=== PATIENT | male | born 1975 | race Caucasian/White ===

== ENCOUNTER 2016-09-29 19:36 | Emergency (ER) | payer SELFPAY ==
[2016-09-29 19:54] VITALS: BP 149/88
[2016-09-29] MEDS ORDERED: Aspirin Low Dose CHEW TAB* 81 MG ONE (20:22)
[2016-09-29] MEDS ORDERED: Aspirin TAB* 325 MG PO ONE (20:23)
--- NOTE | 2016-09-29 20:30 | RAD ---
INDICATION: Sternal pain COMPARISON: None TECHNIQUE: Oblique and lateral views were obtained. FINDINGS: There are no focal bony findings. Soft tissues are normal. IMPRESSION: NORMAL STERNUM.
--- NOTE | 2016-09-29 20:30 | RAD ---
INDICATION: Chest pain COMPARISON: None TECHNIQUE: PA and lateral dual-energy views were obtained. FINDINGS: Bones/Soft Tissues: There are no acute bony findings. Cardiomediastinal: The cardiomediastinal silhouette is normal. Lungs: There are no infiltrates. Pleura: There are no pleural effusions. Other: None IMPRESSION: NORMAL STUDY.
--- NOTE | 2016-11-12 09:06 | UC ---
Jose M Rey Matthew, scribed for Nicole Li MD on 09/29/16 at 2023 . Cardiac HPI - HPI Summary HPI Summary: A 41 y/o male presents to [facility] with sudden, constant, mid sternal chest pain since 07:00 this morning. The pain is rated 5/10 in severity. The patient was unloading a truck of 50lb sand bags and actively pulling a sand bag toward him, when he felt a sudden "pop" in his sternum. The initial pain took his breath away and he had SOB for a few minutes following the incident. The pain was described as sharp. The pain is also worse with movement of the neck. The patient states since onset the pain has come and gone, but remains noticeable. The patient has been taking prilosec for the past 7 years. He stopped smoking approximately 7 years ago. Hx of chronic URIs. - History of Current Complaint Chief Complaint: UCChestPain Stated Complaint: CHEST PAIN Time Seen by Provider: 09/29/16 19:46 Hx Obtained From: Patient Onset/Duration: Sudden Onset, Lasting Hours, Still Present Timing: Constant Initial Severity: Moderate Current Severity: Moderate Pain Intensity: 5 Chest Pain Location: Mid Sternal Character: Sharp/Stabbing Aggravating: Movement Associated Signs & Symptoms: Positive: Chest Pain - Allergy/Home Medications Allergies/Adverse Reactions: Allergies Allergy/AdvReac Type Severity Reaction Status Date / Time No Known Allergies Allergy Verified 09/29/16 21:53 Home Medications: Home Medications Acetaminophen [Tylenol] 650 mg PO 09/29/16 [History] Omeprazole CAP* [Prilosec CAP* 20 MG] 20 mg PO DAILY 09/29/16 [History Confirmed 09/29/16] PMH/Surg Hx/FS Hx/Imm Hx Previously Healthy: No - see below Endocrine History Of: Denies: Diabetes, Thyroid Disease Cardiovascular History Of: Denies: Cardiac Disorders, Hypertension Respiratory History Of: Reports: COPD - ? Denies: Asthma GI/ History Of: Denies: Ulcer - Surgical History Surgical History: Yes Surgery Procedure, Year, and Place: hyatial eclasia - Family History Known Family History: Negative: Cardiac Disease - Social History Alcohol Use: None Alcohol Amount: sober 7 years Substance Use Type: Marijuana Substance Use Comment - Amount & Last Used: weekly Smoking Status (MU): Former Smoker Review of Systems Constitutional: Negative Skin: Negative Eyes: Negative ENT: Negative Respiratory: Negative Cardiovascular: Chest Pain - mid sternal Gastrointestinal: Negative Genitourinary: Negative Motor: Negative Neurovascular: Negative Musculoskeletal: Negative Neurological: Negative Psychological: Negative All Other Systems Reviewed And Are Negative: Yes Physical Exam Triage Information Reviewed: Yes Appearance: Well-Nourished Vital Signs: Initial Vital Signs Temp 96.7 F 09/29/16 19:44 Pulse 89 09/29/16 19:44 Resp 18 09/29/16 19:44 BP 149/88 09/29/16 19:44 Pulse Ox 98 09/29/16 19:44 Vital Signs Reviewed: Yes Eye Exam: Normal ENT Exam: Normal Neck exam: Normal Neck: Positive: No Lymphadenopathy Respiratory: Positive: Chest non-tender, Lungs clear, Normal breath sounds, No respiratory distress, No accessory muscle use Cardiovascular: Positive: RRR, No Murmur, Pulses Normal, Brisk Capillary Refill Abdominal Exam: Normal Abdomen Description: Positive: Nontender, No Organomegaly, Soft Musculoskeletal Exam: Normal Neurological Exam: Normal - non-focal, grossly intact Psychological Exam: Normal - conversing easily and appropriately Skin Exam: Normal Skin: Negative: rashes Diagnostics - Radiology CXR Xray Interpretation: No Acute Changes - IMPRESSION: NORMAL STUDY. Radiology Interpretation Completed By: Radiologist Sterum XR Xray Interpretation: No Acute Changes - IMPRESSION: NORMAL STERNUM. Radiology Interpretation Completed By: Radiologist - EKG Cardiac Rate: NL - 68 bpm Cardiac Rhythm: Sinus: Normal - No Old For Comparasion; Probable left atrial enlargement; left ventricular hypertrophy; abnormal T, probable ischemia, anterior leads, II, III, aVF, V1-V5 - Assessment/Plan Course Of Treatment: Transfered to the ED for further evaluation and treatment. Questions answered to the best of my ability. No new problems while in [facility]. Mr. Martínez was offered and encouraged EMS transport, he politely but adamantly declines (AMA re EMS signed). - Clinical Impression Provider Diagnoses: chest pain - Physician Notifications Discussed Patient Care With: Dr. Coronel (ED physician) at 20:25 -- Notified of patient's history and will accept transfer of the patient. Discharge - Discharge Plan Condition: Guarded Disposition: TRANS HIGHER LVL OF CARE FAC Referrals: No Primary Care Phys,NOPCP [Primary Care Provider] - Additional Instructions: n/a The documentation as recorded by the Jose M wise Matthew accurately reflects the service I personally performed and the decisions made by me, Nicole Li MD.
== END 2016-09-29 20:32 | disposition short-term general hospital (02) ==
LOC: UCEAST 19:36
DX: R07.2 Precordial pain (principal); F12.90 Cannabis use, unspecified, uncomplicated; Z87.891 Personal history of nicotine dependence
CPT/HCPCS: 71020; 71120; 93005; 99202; A9270-GY; G0463

== ENCOUNTER 2016-09-29 21:22 | Emergency (ER) | payer SELFPAY ==
[2016-09-29] MEDS ORDERED: Aspirin Low Dose CHEW TAB* 81 MG PO ONE (22:56)
[2016-09-29 23:13] LABS: Hematocrit 39 % (42-52); Hemoglobin 13.2 g/dl (14.0-18.0); Mean Corpuscular HGB Conc 34 g/dl (31-36); Mean Corpuscular Hemoglobin 29 pg (27-31); Mean Corpuscular Volume 87 fL (80-94); Mean Platelet Volume 9 um3 (7.4-10.4); Red Blood Count 4.52 10^6/ul (4.0-5.4); Red Cell Distribution Width 14 % (10.5-15); White Blood Count 6.9 10^3/ul (3.5-10.8)
[2016-09-29 23:28] LABS: BUN/Creatinine Ratio 21.5 (8-20); Calcium 9.2 mg/dL (8.6-10.3); EGFR African American 139.7 (>60); EGFR Non-African American 108.6 (>60); Potassium 3.6 mmol/L (3.5-5.0)
--- NOTE | 2016-09-30 00:24 | ED ---
Jhonathan Rey Aidan, scribed for Stephane Corbett MD on 09/29/16 at 2245 . HPI Chest Pain - HPI Summary HPI Summary: 41 y/o male presents to the ED via transfer from the Urgent Care with a complaint of acute, constant, moderate (4/10), sharp chest pain and SOB. The pain is aggravated by breathing. During the onset of the pain, he felt a pop in his chest. Pt took tums because he initially thought he had indigestion, however , the tums did not alleviate his pain. Hx of URIs. - History of Current Complaint Chief Complaint: EDChestWallPain Time Seen by Provider: 09/29/16 22:38 Hx Obtained From: Patient Onset/Duration: Started Hours Ago, Still Present Timing: Constant Initial Severity: Moderate Current Severity: Moderate Pain Intensity: 4 Pain Scale Used: 0-10 Numeric Chest Pain Location: Diffuse Chest Pain Radiates: No Character: Sharp/Stabbing Aggravating Factor(s): Other: - unknown Alleviating Factor(s): Other: - unknown Associated Signs and Symptoms: Positive: Chest Pain, Shortness of Breath - Risk Factors Pulmonary Embolism Risk Factors: Smoking - former smoker TAD Risk Factors: Smoking - former smoker AMI/ACS Risk Factors: Smoking - former smoker - Allergy/Home Medications Allergies/Adverse Reactions: Allergies Allergy/AdvReac Type Severity Reaction Status Date / Time No Known Allergies Allergy Verified 09/29/16 21:53 PMH/Surg Hx/FS Hx/Imm Hx Endocrine/Hematology History: Denies: Hx Diabetes, Hx Thyroid Disease Cardiovascular History: Denies: Hx Hypertension Respiratory History: Reports: Hx Chronic Obstructive Pulmonary Disease (COPD) - ? Denies: Hx Asthma GI History: Denies: Hx Ulcer - Surgical History Surgery Procedure, Year, and Place: [facility] Infectious Disease History: No Infectious Disease History: Denies: Hx Hepatitis, Hx Human Immunodeficiency Virus (HIV), Traveled Outside the [place] in Last 30 Days - Family History Known Family History: Positive: Hypertension - Social History Occupation: Employed Full-time Lives: With Family Alcohol Use: None Alcohol Amount: sober 7 years Substance Use Type: Reports: Marijuana Substance Use Comment - Amount & Last Used: weekly Hx Tobacco Use: No Smoking Status (MU): Former Smoker Review of Systems Constitutional: Negative Eyes: Negative ENT: Negative Positive: Chest Pain. Negative: Palpitations Positive: Shortness Of Breath. Negative: Cough Gastrointestinal: Negative Genitourinary: Negative Musculoskeletal: Negative Skin: Negative Neurological: Negative Psychological: Normal All Other Systems Reviewed And Are Negative: Yes Physical Exam Triage Information Reviewed: Yes Vital Signs On Initial Exam: Initial Vitals Temp Pulse Resp BP Pulse Ox 97.8 F 78 16 130/83 99 09/29/16 21:45 09/29/16 21:45 09/29/16 21:45 09/29/16 21:45 09/29/16 21:45 Vital Signs Reviewed: Yes Appearance: Positive: Well-Appearing, No Pain Distress Skin: Positive: Warm Head/Face: Positive: Normal Head/Face Inspection Eyes: Positive: LAURA ENT: Positive: Hearing grossly normal Neck: Positive: Supple Respiratory/Lung Sounds: Positive: Clear to Auscultation, Breath Sounds Present Cardiovascular: Positive: RRR. Negative: Murmur Abdomen Description: Positive: Nontender, No Organomegaly, Soft Bowel Sounds: Positive: Present Musculoskeletal: Positive: Strength/ROM Intact Neurological: Positive: Sensory/Motor Intact, Alert, Oriented to Person Place, Time Psychiatric: Positive: Affect/Mood Appropriate - Stacy Coma Scale Coma Scale Total: 15 Diagnostics - Vital Signs Vital Signs Temp Pulse Resp BP Pulse Ox 09/29/16 22:41 97.4 F 74 15 121/86 97 09/29/16 21:45 97.8 F 78 16 130/83 99 - Laboratory Lab Results: Lab Results 09/29/16 09/29/16 Range/Units 23:00 23:00 WBC 6.9 (3.5-10.8) 10^3/ul RBC 4.52 (4.0-5.4) 10^6/ul Hgb 13.2 L (14.0-18.0) g/dl Hct 39 L (42-52) % MCV 87 (80-94) fL MCH 29 (27-31) pg MCHC 34 (31-36) g/dl RDW 14 (10.5-15) % Plt Count 205 (150-450) 10^3/ul MPV 9 (7.4-10.4) um3 Neut % (Auto) 50.6 (38-83) % Lymph % (Auto) 37.8 (25-47) % Riley % (Auto) 8.7 (1-9) % Eos % (Auto) 2.4 (0-6) % Baso % (Auto) 0.5 (0-2) % Absolute Neuts (auto) 3.5 (1.5-7.7) 10^3/ul Absolute Lymphs (auto) 2.6 (1.0-4.8) 10^3/ul Absolute Monos (auto) 0.6 (0-0.8) 10^3/ul Absolute Eos (auto) 0.2 (0-0.6) 10^3/ul Absolute Basos (auto) 0 (0-0.2) 10^3/ul Absolute Nucleated RBC 0 10^3/ul Nucleated RBC % 0 Sodium 138 (133-145) mmol/L Potassium 3.6 (3.5-5.0) mmol/L Chloride 106 (101-111) mmol/L Carbon Dioxide 28 (22-32) mmol/L Anion Gap 4 (2-11) mmol/L BUN 17 (6-24) mg/dL Creatinine 0.79 (0.67-1.17) mg/dL Est GFR ( Amer) 139.7 (>60) Est GFR (Non-Af Amer) 108.6 (>60) BUN/Creatinine Ratio 21.5 H (8-20) Glucose 94 (70-100) mg/dL Calcium 9.2 (8.6-10.3) mg/dL Troponin I 0.00 (<0.04) ng/mL Result Diagrams: 09/29/16 23:00 09/29/16 23:00 Lab Statement: Any lab studies that have been ordered have been reviewed, and results considered in the medical decision making process. Re-Evaluation - Re-Evaluation First Eval Change: Improved - remains pain free Chest Pain Course/Dx - Diagnoses Provider Diagnoses: Chest pain Discharge - Discharge Plan Condition: Stable Disposition: HOME Discharge Disposition Comment: Please follow up with your primary care physician. Patient Education Materials: Chest Pain (ED) Referrals: No Primary Care Phys,NOPCP [Primary Care Provider] - The documentation as recorded by the Jhonathan wise Aidan accurately reflects the service I personally performed and the decisions made by me, Stephane Corbett MD.
[2016-09-30 03:15] VITALS: BP 125/88
== END 2016-09-30 03:14 | disposition home or self-care (01) ==
LOC: ED 21:22
DX: R07.9 Chest pain, unspecified (principal); R06.02 Shortness of breath; Z87.891 Personal history of nicotine dependence
CPT/HCPCS: 36415; 80048; 84484; 85025; 99283